=== PATIENT | female | born 1950 | race Caucasian/White ===

== ENCOUNTER 2016-09-20 09:29 | Day surgery (SDC) | payer MEDICARE, BC ==
[~2016-09-20 09:29] MED LIST: LIDOCAINE HCL 1% MPF SOL ONE; PROPOFOL 500 MG/50 ML EMU IV ONE
[2016-09-20 11:41] VITALS: BP 155/79; PULSE 65; RESP 18; TEMP 97.3; O2SAT 98
== END 2016-09-20 12:07 | disposition home or self-care (01) | DRG 951 ==
LOC: SURG 09:29
PROVIDERS: ATTEND Internal Medicine Gastroenterology
DX: Z12.11 Encounter for screening for malignant neoplasm of colon (principal); D12.3 Benign neoplasm of transverse colon; R19.5 Other fecal abnormalities; K57.30 Diverticulosis of large intestine without perforation or abscess without bleeding; K64.8 Other hemorrhoids; D12.5 Benign neoplasm of sigmoid colon
CPT/HCPCS: J2001; J2704

== ENCOUNTER 2017-05-22 08:54 | Day surgery (SDC) | payer MEDICARE, BC ==
[2017-05-22] MEDS ORDERED: PROPOFOL 10 MG/ML EMU IV ONE (10:00)
[2017-05-22] MEDS ORDERED: MIDAZOLAM 2 MG/2 ML SOL ONE (10:00)
[2017-05-22] MEDS ORDERED: LIDOCAINE HCL 1% MPF SOL ONE (10:00)
[2017-05-22] MEDS ORDERED: ONDANSETRON HCL 4 MG/2 ML SOL ONE (10:00)
[2017-05-22] MEDS ORDERED: FENTANYL 100MCG/2ML SOL ONE ×2 (10:01→11:09)
[2017-05-22] MEDS ORDERED: CLINDAMYCIN 150 MG/ML SOL ONE (10:43)
[2017-05-22] MEDS ORDERED: KETOROLAC TROMETHAMINE 30 MG/ML SOL ONE (11:25)
[2017-05-22] MEDS: HYDROMORPHONE 1 MG/ML SYRINGE ONE ×2 (11:56→13:00)
[2017-05-22 12:44] VITALS: BP 133/70; PULSE 59; RESP 20; TEMP 97; O2SAT 97
== END 2017-05-22 13:35 | disposition home or self-care (01) | DRG 563 ==
LOC: SURG 08:54
PROVIDERS: ATTEND Orthopaedic Surgery
DX: S83.231A Complex tear of medial meniscus, current injury, right knee, initial encounter (principal); M23.41 Loose body in knee, right knee; M71.21 Synovial cyst of popliteal space [Baker], right knee
CPT/HCPCS: 99070; J1885; J2250; J2405; J3010; J3490; J1170; J2001; J2704